=== PATIENT | female | born 1985 | race Caucasian/White ===

== ENCOUNTER 2021-03-16 16:57 | Emergency (ER) | payer OTHER ==
[~2021-03-16] VITALS: Ht 162.5 cm; Wt 54.4 kg
[~2021-03-16 16:57] MED LIST: ABILIFY5 MG; MOTRIN800 MG PO; NORFLEX100 MG PO; PREDNISONE20 MG PO; ULTRAM50 MG PO; VALIUM10 MG
[2021-03-16] MEDS ORDERED: CEPHALEXIN500 M1 PO (18:36)
== END 2021-03-16 18:45 | disposition home or self-care (01) ==
LOC: ED 16:57
DX: S60.221A Contusion of right hand, initial encounter (principal); Z91.048 Other nonmedicinal substance allergy status; W31.89XA Contact with other specified machinery, initial encounter; Y93.89 Activity, other specified; Y92.89 Other specified places as the place of occurrence of the external cause; Y99.8 Other external cause status